=== PATIENT | female | born 1995 | race Caucasian/White ===

== ENCOUNTER 2018-07-15 23:28 | Emergency (ER) | payer OTHER ==
[2018-07-15 23:33] VITALS: BP 130/77; PULSE 68; RESP 16; TEMP 98.4
[2018-07-16] MEDS ORDERED: AMOXIC-POT CLAV 875MG STARTER 2 EACH TABLET PO STA (01:15)
[2018-07-16] MEDS ORDERED: DIPH,PERTUS(ACELL)TETVAC-LF 0.5 ML VIAL IM ONE (01:15)
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
== END 2018-07-16 01:45 | disposition home or self-care (01) ==
LOC: EC 23:28 → SUPCPDRO 23:28 → EC 07-16 01:45
DX: S60.413A Abrasion of left middle finger, initial encounter (principal); Z23 Encounter for immunization; W50.3XXA Accidental bite by another person, initial encounter; Y93.89 Activity, other specified; Y92.69 Other specified industrial and construction area as the place of occurrence of the external cause; Y99.0 Civilian activity done for income or pay
CPT/HCPCS: 90471; 90715; 99283

== ENCOUNTER 2018-11-23 13:57 | Outpatient (CLI) | payer SELFPAY ==
[2018-11-23 14:54] VITALS: BP 127/79; PULSE 70; RESP 18; TEMP 98
--- NOTE | 2019-01-02 07:34 | P.MSEPDOC ---
Presenting Problems - Arrival Data Date of Arrival on Unit: 11/23/18 Time of Arrival on Unit: 13:57 Mode of Transport: Ambulatory - Complaint OB-Reason for Admission/Chief Complaint: Rule Out PROM Medical History - Information : 1 Para: 0 Term: 0 : 0 Abortions: Spontaneous or Elective: 0 Number of Living Children: 0 - Gestational Age Gestational Age by NORMAN (wks/days): 22 Weeks and 3 Days Review of Systems - Review of Systems Constitutional: No problems Breast: No problems ENT: No problems Cardiovascular: No problems Respiratory: No problems Gastrointestinal: No problems Genitourinary: No problems Musculoskeletal: No problems Neurological: No problems Skin: No problems Vital Signs - Temperature Temperature: 98.0 F Temperature Source: Temporal Artery Scan - Pulse Right Brachial Pulse Rate: 70 Pulse Assessment Method: Automatic Cuff - Respirations Respiratory Rate: 18 Oxygen Delivery Method: Room Air - Blood Pressure Right Arm Blood Pressure: 127/79 Blood Pressure Mean: 95 Blood Pressure Source: Automatic Cuff Medical Screen Scoring (Pre) - Cervical Exam Dilation: Exam Deferred Effacement: Exam Deferred Membranes: Intact - Uterine Contractions Frequency: N/A Duration: N/A Intensity: N/A - Maternal Vital Signs Maternal Temperature: N/A Maternal Blood Pressure: N/A Signs of Preeclampsia: N/A Maternal Respirations: N/A - Maternal Trauma Maternal Trauma: N/A - Assessment - Baby A Heart Rate - NICHD Category: Category I (Normal) = 0 Position: N/A Station: N/A - Total Score - Baby A Total Score - Baby A: 0 - Level of Risk - Baby A Level of Risk - Baby A: Low (0-5) - Pain Assessment Pain Scale Used: Numeric (1 - 10) Pain Intensity: 0 Physician Notification (Pre) - Physician Notified Physician Notified Date: 11/23/18 Physician Notified Time: 14:30 Physician/Practitioner Notifed:: Dr. Gary Spoke With: Dr. Gary New Order Received: Yes - Notification Comment Comment: discharge pt home, have her follow up in office next week with Dr. Jimenez Disposition - Disposition OB Disposition: Triage, Discharge to home Discharge Date: 11/23/18 Discharge Time: 14:35 I agree with the RN Medical Screening Exam: Yes Risk & Benefit of care provided described in d/c instruction: Yes Diagnosis: O47.01
== END 2018-11-23 14:35 | disposition home or self-care (01) ==
LOC: FBPOP 13:57
PROVIDERS: ATTEND Obstetrics & Gynecology
DX: O47.02 False labor before 37 completed weeks of gestation, second trimester (principal); Z3A.22 22 weeks gestation of pregnancy
CPT/HCPCS: 84112; 99213

== ENCOUNTER 2019-04-02 05:50 | Inpatient (IN) | payer MEDICAID ==
[2019-04-02] MEDS ORDERED: LIDOCAINE 0.5% (PF) 5 MG/ML (50 ML SDV) SQ PRN (06:10)
[2019-04-02] MEDS ORDERED: METHYLERGONOVINE 0.2 MG/ML 1 ML AMP IM PRN (06:10)
[2019-04-02] MEDS ORDERED: OXYTOCIN 10 UNIT/ML 1 ML VIAL IM PRN (06:10)
[2019-04-02] MEDS ORDERED: CARBOPROST TROMETHAMINE 250 MCG/ML 1 ML AMP IM PRN (06:10)
[2019-04-02] MEDS ORDERED: TERBUTALINE 1 MG/ML VIAL SQ PRN (06:10)
[2019-04-02] MEDS ORDERED: OXYTOCIN 30 UNITS/500 ML NS 30 UNIT in SALINE 1 500ML.BAG IV SCH (06:15)
[2019-04-02 06:17] VITALS: BMI 30.1
[2019-04-02] MEDS: LACTATED RINGERS 1,000 ML IV SCH ×3 (06:21→11:04)
[2019-04-02 06:44] LABS: Basophils # (A) 0.1 k/uL (0-0.2); Basophils % (A) 1 %; Eosinophils # (A) 0.2 k/uL (0-0.7); Eosinophils % (A) 2 %; HCT 40.8 % (34.0-46.0); HGB 14.2 gm/dL (11.4-16.0); Lymphocytes % (A) 21 %; MCH 31.4 pg (25.0-35.0); MCHC 34.8 g/dL (31.0-37.0); MCV 90.2 fL (80.0-100.0); Mean Platelet Volume 7.7; Monocytes # (A) 0.6 k/uL (0-1.0); Monocytes % (A) 6 %; Neutrophils # (A) 6.5 k/uL (1.3-7.7); Neutrophils % (A) 68 %; Platelet Count 256 k/uL (150-450); RBC 4.52 m/uL (3.80-5.40); RDW 14.4 % (11.5-15.5); WBC 9.6 k/uL (3.8-10.6)
--- NOTE | 2019-04-02 06:57 | P.HPOB ---
History of Present Illness H&P Date: 04/02/19 Chief Complaint: Here for induction of labor for postdates . This is a 23-year-old white female 1 para 0 EDC 03/26/2019 at 41 weeks gestation. Patient presents for induction for postdates . Fetus is been active throughout the . She is having irregular very mild uterine contractions at this time. She denies fluid leakage or vaginal bleeding. Past medical history is significant for anxiety. Past surgical history adenoidectomy and tonsillectomy, eustachian tubes, benign cyst removed from the neck. Current medications vitamins. ALLERGIES none known. Family history significant for heart disease, hypertension, lymphoma, squamous cell carcinoma. 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 She has never been a smoker. She denies alcohol or drug use. Obstetric history is significant for blood type A+, rubella status immune. Hepatitis B surface antigen, HIV testing, urine culture, gonorrhea and chlamydia cultures, group B strep cultures all negative. One-hour Glucola less than 140. On exam patient is 4 foot 11 inches, 149 pounds, initial blood pressure 137/90. Vital signs are otherwise stable. The general physical exam is within normal limits. The chest is clear in all kn[place]. Extremities reveal no edema. heart rate is consistent with reactive NST. Cervix is 3 cm dilated, 80% effaced, -2 station, vertex presentation. Artificial amniorrhexis reveals clear fluid. Impression: 41 week intrauterine , here for induction of labor. All signs reassuring. Plan: Oxytocin per hospital protocol. Posterior maternal and surveillance. Analgesic options reviewed with the patient. Anticipate normal spontaneous vaginal delivery. Review of Systems Constitutional: Reports as per HPI Past Medical History Past Medical History: No Reported History History of Any Multi-Drug Resistant Organisms: None Reported Past Surgical History: No Surgical Hx Reported Past Anesthesia/Blood Transfusion Reactions: No Reported Reaction Past Psychological History: No Psychological Hx Reported, Anxiety Smoking Status: Never smoker Past Alcohol Use History: None Reported - Past Family History Mother Family Medical History: Hypertension Medications and Allergies Home Medications Medication Instructions Recorded Confirmed Type Pnv No.95/Ferrous Fum/Folic AC 1 each PO DAILY 11/23/18 04/02/19 History [ Multivitamin Tablet] Allergies Allergy/AdvReac Type Severity Reaction Status Date / Time No Known Allergies Allergy Verified 04/02/19 06:09 Exam Vital Signs Temp Pulse Resp BP Pulse Ox 04/02/19 06:11 97.5 F L 70 15 137/90 99 Intake and Output 04/01/19 04/01/19 04/02/19 14:59 22:59 06:59 Other: Weight 67.585 kg See dictation please under HPI Results Result Diagrams: 04/02/19 06:15 Assessment and Plan Assessment: 41 week intrauterine , here for induction of labor. All signs reass uring. Plan: Analgesic options reviewed with the patient. Oxytocin per hospital protocol. Close maternal and surveillance. Anticipate normal spontaneous vaginal delivery. Time with Patient: Less than 30
[2019-04-02] MEDS ORDERED: fentaNYL (PF) 50 MCG/ML 5 ML AMP ONE (10:18)
[2019-04-02] MEDS ORDERED: ROPIVACAINE 5MG/ML 20ML VIAL ONE (10:18)
[2019-04-02] MEDS ORDERED: SODIUM CHLORIDE 0.9% 100 ML BAG ONE (10:18)
[2019-04-02] MEDS ORDERED: diphenhydrAMINE 50 MG CAP PO PRN (15:49)
[2019-04-02] MEDS ORDERED: SIMETHICONE 80 MG CHEWABLE PO PRN (15:49)
[2019-04-02] MEDS ORDERED: diphenhydrAMINE ELIXIR 25 MG/10 ML CUP PO PRN (15:49)
[2019-04-02] MEDS ORDERED: HYDROCORTISONE 2.5% RECTAL CREAM 30 GM TUBE RECTAL PRN (15:49)
[2019-04-02] MEDS ORDERED: BENZOCAINE/MENTHOL SPRAY 1 GM/SPRAY AEROSOL TOPICAL PRN (15:49)
[2019-04-02] MEDS ORDERED: ZOLPIDEM 5 MG TAB PO PRN (15:49)
[2019-04-02] MEDS ORDERED: LANOLIN CREAM 5 GM TUBE TOPICAL PRN (15:49)
[2019-04-02] MEDS ORDERED: diphenhydrAMINE 25 MG CAP PO PRN (15:49)
[2019-04-02] MEDS ORDERED: WITCH HAZEL 1 EACH MED..PAD TOPICAL PRN (15:49)
[2019-04-02] MEDS ORDERED: HYDROcodone/APAP 5-325MG 1 EACH TAB PO PRN (15:49)
[2019-04-02] MEDS ORDERED: diphenhydrAMINE 50 MG/ML 1 ML VIAL IVP PRN ×2 (15:49)
--- NOTE | 2019-04-02 15:49 | P.PROBDLV ---
Vaginal Delivery Note - . Vaginal Delivery Note: This is a 23-year-old white female 1 para 0 EDC 03/26/2019 at 41 weeks gestation. Patient presented today for induction for postdates with reasonably favorable cervix. Fetus is been active throughout the . Group B strep cultures negative. Blood type A+. Rubella status immune. Please see my dictated history and physical for details. Artificial amniorrhexis revealed clear fluid. Oxytocin was started and titrated press per protocol. She became uncomfortable and requested an epidural, this was placed without difficulty. She progressed to the first stage of labor and became completely dilated, at which time the second stage of labor commenced. After approximately 1 hour, the crowned in the occiput anterior position. The perineal body was prepped and draped in usual sterile fashion. A small midline episiotomy was performed for a large amount of It and the large head. Infant's head delivered occiput anterior and she restituted accordingly. There was no nuchal cord noted. The right or anterior shoulder was gently delivered from underneath the pubic symphysis at which time the oropharynx, nasopharynx, and external nares were bulb suctioned on the perineal body. Patient was officially delivered of a liveborn female at [id number] hours. Umbilical cord was doubly clamped and ligated, she was handed to waiting nurses for evaluation where scores of 9 and 9 at one and 5 minutes respectively were given. The placenta delivered spontaneously, it was inspected and noted to be intact with trivascular cord several minutes after. The uterus is then massaged. Inspection of the cervix, vagina, perineum, periurethral, and perirectal areas revealed no extension. The small second-degree midline episiotomy was repaired in the usual fashion using 3-0 Vicryl suture and 1% lidocaine. Excellent reapproximation was noted. Infant weight 8 lbs. 1 oz. or 3655 g. Total estimated blood loss 300 mL's. Patient her and family members were allowed to begin the bonding. With the immediately following delivery.
[2019-04-02] MEDS ORDERED: OXYTOCIN 20 UNITS/1000 ML NS 1,000 ML IV SCH (16:00)
[2019-04-02] MEDS: IBUPROFEN 600 MG TAB PO PRN (16:23)
[2019-04-02] MEDS: SENNOSIDES-DOCUSATE SODIUM 1 EACH TAB PO SCH (19:30)
[2019-04-02] MEDS: ACETAMINOPHEN TAB 325 MG TAB PO PRN (20:32)
[2019-04-03] MEDS: IBUPROFEN 600 MG TAB PO PRN ×3 (05:56→23:40)
--- NOTE | 2019-04-03 07:39 | P.DS ---
Providers Date of admission: 04/02/19 05:50 Expected date of discharge: 04/03/19 Attending physician: Parul Jimenez Primary care physician: Stated None Hospital Course: This is a 23-year-old white female 1 para 0 EDC 03/26/2019 at 41 weeks gestation. Patient presented for induction for postdates with favorable cervix. is remarkable for blood type A positive, rubella status immune, group strep cultures negative. Please see dictated history and physical for details. Artificial amniorrhexis revealed clear fluid. Oxytocin was started and titrated per hospital protocol. Epidural was placed per her request. In the second stage of labor she was noted to have a very large head, stretching of the perineal body was difficult. Therefore a small midline episiotomy was performed with the aid of lidocaine. Patient went on to deliver a liveborn female infant with scores of 9 and 9 at one and 5 minutes respectively. weight 8 lbs. 1 oz. or 3655 g. The repair the episiotomy went well. Estimated blood loss 300 mL's. Please see dictated delivery note for details. This morning the patient and her infant are both doing well. Patient is voiding, ambulating, passing flatus, and breast-feeding without difficulty. Breasts are not engorged. Prescription for breast pump is provided. infant is doing well. Patient is judged to be in very good condition for discharge home. She will follow-up with me in the office in 6 weeks. I have reminded her no intercourse, tampons or douching. She will use [id number] Advil or Aleve, or Motrin as needed for pain. She will continue taking her vitamin daily. I've asked her to call me with any fevers shakes or chills, foul smelling or copious lochia, with the passage of large blood clots, with any pain not alleviated by [id number] products, or indeed with any concerns. 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 Patient Condition at Discharge: Good Plan - Discharge Summary Discharge Rx Participant: No New Discharge Prescriptions: No Action Pnv No.95/Ferrous Fum/Folic AC [ Multivitamin Tablet] 1 each PO DAILY Discharge Medication List Pnv No.95/Ferrous Fum/Folic AC [ Multivitamin Tablet] 1 each PO DAILY 11/23/18 [History] Follow up Appointment(s)/Referral(s): Parul Jimenez MD [STAFF PHYSICIAN] - 6 Weeks Discharge Disposition: HOME SELF-CARE
[2019-04-03] MEDS: SENNOSIDES-DOCUSATE SODIUM 1 EACH TAB PO SCH (08:09)
[2019-04-04] MEDS: SENNOSIDES-DOCUSATE SODIUM 1 EACH TAB PO SCH ×2 (01:03→09:39)
[2019-04-04] MEDS: IBUPROFEN 600 MG TAB PO PRN ×2 (05:34→16:18)
[2019-04-04 09:38] VITALS: RESP 16
[2019-04-04] MEDS: ACETAMINOPHEN TAB 325 MG TAB PO PRN (09:41)
[2019-04-04 16:15] VITALS: BP 112/65; PULSE 64; TEMP 98.4
== END 2019-04-04 19:16 | disposition home or self-care (01) | DRG 807 ==
LOC: 4FBP 05:50
PROVIDERS: ADMIT Obstetrics & Gynecology; ATTEND Obstetrics & Gynecology
PROC: 10E0XZZ Delivery of Products of Conception, External Approach (ICD-10-PCS; principal; 2019-04-02)
PROC: 10907ZC Drainage of Amniotic Fluid, Therapeutic from Products of Conception, Via Natural or Artificial Opening (ICD-10-PCS; 2019-04-02)
PROC: 3E033VJ Introduction of Other Hormone into Peripheral Vein, Percutaneous Approach (ICD-10-PCS; 2019-04-02)
PROC: 0W8NXZZ Division of Female Perineum, External Approach (ICD-10-PCS; 2019-04-02)
PROC: 00HU33Z Insertion of Infusion Device into Spinal Canal, Percutaneous Approach (ICD-10-PCS; 2019-04-02)
PROC: 3E0R3BZ Introduction of Anesthetic Agent into Spinal Canal, Percutaneous Approach (ICD-10-PCS; 2019-04-02)
DX: O48.0 Post-term pregnancy (principal); Z37.0 Single live birth; Z3A.41 41 weeks gestation of pregnancy; Z86.59 Personal history of other mental and behavioral disorders; Z80.7 Family history of other malignant neoplasms of lymphoid, hematopoietic and related tissues; Z82.49 Family history of ischemic heart disease and other diseases of the circulatory system; Z80.9 Family history of malignant neoplasm, unspecified
CPT/HCPCS: 85025; 86850; 86900; 86901

== ENCOUNTER 2021-01-17 09:14 | Observation (INO) | payer BC, MEDICAID ==
--- NOTE | 2021-01-17 09:44 | ED ---
Female Urogenital HPI - General Chief complaint: Urogenital Stated complaint: 13wks Preg/Unable to Urinate Time Seen by Provider: 01/17/21 09:33 Source: patient Mode of arrival: ambulatory Limitations: no limitations - History of Present Illness Initial comments: 25-year-old female that is 13 weeks resents with difficulty urinating for the last day. Patient states she's having a hard time being able to urinate and only getting small amount of urine out. Patient states she does feel some lower abdominal pressure with urination. No back pain. Patient states she had a normal bowel movement today and it did seem to help. She did not have any vaginal bleeding. Patient has not had any abdominal surgical history. No nausea no vomiting no fevers. Patient saw her OB earlier this week Dr. Jimenez and had a normal visit. Patient did have an ultrasound that was normal at 8 weeks gestation. Patient is scheduled for another ultrasound at 20 weeks. Patient did have some discomfort and pressure with intercourse yesterday. MD Complaint: other (difficulty urinating ) -: days(s) (1) Location: suprapubic Radiation: non-radiating Quality: cramping, dull Consistency: constant Improves with: other (BM) Worsens with: intercourse, movement Associated Symptoms: denies other symptoms - Related Data Sexually active: Yes : 2 Para: 1 Home Medications Medication Instructions Recorded Confirmed Pnv No.95/Ferrous Fum/Folic AC 1 each PO DAILY 11/23/18 04/02/19 [ Multivitamin Tablet] Allergies Allergy/AdvReac Type Severity Reaction Status Date / Time No Known Allergies Allergy Verified 01/17/21 13:05 Review of Systems ROS Statement: Those systems with pertinent positive or pertinent negative responses have been documented in the HPI. ROS Other: All systems not noted in ROS Statement are negative. Constitutional: Denies: fever, chills Gastrointestinal: Reports: abdominal pain Genitourinary: Reports: dyspareunia, other (decreased urine output) Musculoskeletal: Denies: back pain Skin: Denies: rash Past Medical History Past Medical History: No Reported History History of Any Multi-Drug Resistant Organisms: None Reported Past Surgical History: No Surgical Hx Reported Past Anesthesia/Blood Transfusion Reactions: No Reported Reaction Past Psychological History: Anxiety Smoking Status: Never smoker Past Alcohol Use History: None Reported Past Drug Use History: None Reported - Past Family History Mother Family Medical History: Hypertension General Exam Limitations: no limitations General appearance: alert, in no apparent distress Respiratory exam: Present: normal lung sounds bilaterally. Absent: respiratory distress, wheezes, rales, rhonchi, stridor Cardiovascular Exam: Present: regular rate, normal rhythm, normal heart sounds. Absent: systolic murmur, diastolic murmur, rubs, gallop, clicks GI/Abdominal exam: Present: soft, tenderness (suprapubic), normal bowel sounds. Absent: distended, guarding, rebound, rigid Back exam: Present: normal inspection Neurological exam: Present: alert, oriented X3, CN II-XII intact Psychiatric exam: Present: normal affect, normal mood Skin exam: Present: warm, dry, intact, normal color. Absent: rash Course Vital Signs 01/17/21 01/17/21 09:16 12:31 Temperature 98.2 F 98.6 F Pulse Rate 65 55 L Respiratory 18 18 Rate Blood Pressure 125/76 102/55 O2 Sat by Pulse 99 98 Oximetry Medical Decision Making - Medical Decision Making 25-year-old female presents with urinary retention. Patient had straight cath here and had 900 mL obtained. Patient felt a lot more relief after having that, after reviewing urine patient does show a slight infection we'll start IV antibiotics due to pelvic OB ultrasound been normal we contacted Dr. Apodaca who is willing to admit her for observation and bladder scans throughout the evening. We will order a CBC and CMP patient understands plan and care - Lab Data Lab Results 01/17/21 Range/Units 09:47 Urine Color Light Yellow Urine Appearance Cloudy H (Clear) Urine pH 6.5 (5.0-8.0) Ur Specific [place] 1.013 (1.001-1.035) Urine Protein Negative (Negative) Urine Glucose (UA) Negative (Negative) Urine Ketones Negative (Negative) Urine Blood Negative (Negative) Urine Nitrite Negative (Negative) Urine Bilirubin Negative (Negative) Urine Urobilinogen <2.0 (<2.0) mg/dL Ur Leukocyte Esterase Small H (Negative) Urine RBC 1 (0-5) /hpf Urine WBC 3 (0-5) /hpf Ur Squamous Epith Cells 17 H (0-4) /hpf Amorphous Sediment Occasional H (None) /hpf Urine Bacteria Moderate H (None) /hpf Urine Mucus Occasional H (None) /hpf Disposition Clinical Impression: Urinary tract infection, Urinary retention with incomplete bladder emptying, Disposition: ADMITTED IP TO THIS [facility] Instructions (If sedation given, give patient instructions): Urinary Tract Infection in Women (ED) Is patient prescribed a controlled substance at d/c from ED?: No Referrals: Christina Naik MD [Primary Care Provider] - 1-2 days Time of Disposition: 13:44
[2021-01-17 10:09] LABS: Amorphous Sediment,Urine Occasional /hpf; Appearance,Urine Cloudy (Clear); Bacteria,Urine Moderate /hpf; Bilirubin,Urine Negative (Negative); Blood,Urine Negative (Negative); Color,Urine Light Yellow; Glucose,Urine (UA) Negative (Negative); Ketones,Urine Negative (Negative); Leukocyte Esterase,Urine Small (Negative); Mucus,Urine Occasional /hpf; Nitrite,Urine Negative (Negative); PH, Urine 6.5 (5.0-8.0); Protein,Urine Negative (Negative); RBC,Urine 1 /hpf (0-5); Specific Gravity,Urine 1.013 (1.001-1.035); Squamous Epithelial Cell,Urine 17 /hpf (0-4); Urobilinogen,Urine <2.0 mg/dL (<2.0); WBC,Urine 3 /hpf (0-5)
--- NOTE | 2021-01-17 11:08 | US ---
EXAMINATION TYPE: Transabdominal DATE OF EXAM: 01/17/2021 10:55 AM COMPARISON: NONE CLINICAL HISTORY: difficulty urinating, 13 weeks . no pain, no cramping. Unable to urinate p er patient. EXAM PERFORMED: Transabdominal (TA) EXAM MEASUREMENTS: GESTATIONAL AGE / DATING Physician Established: (13 weeks/5 days) EDC: 07/20/2021 Dates by LMP: LMP unknown Dates by First Scan: (13 weeks/5 days) EDC: 07/20/2021 Dates by Current Scan for: (13 weeks/6 days) EDC: 07/19/2021 MATERNAL ANATOMY Uterus: 13.0 x 10.x x 9.9 cm Right Ovary: 4.1 x 2.4 x 2.3 cm Left Ovary: 3.4 x 2.1 x 1.2 cm Post CDS / Adnexa: no free fluid Presence of free fluid: no Presence of corpus luteal cyst: right ovarian lesion = 2.0 x 1.9 x 1.8 cm Presence of subchorionic bleed: no GESTATION / SURVEY CRL: 7.8 cm (13 weeks/6 days) MSD: seen, not measured Yolk Sac (normal less than 6mm): not visualized Heart Rate: 157 bpm Rhythm: Normal IUP: Viable IUP Date of LMP: unknown, Beta HcG (if available): Not available at this time Single live IUP measuring 13 weeks 6 days. Linen Attendant tried to have patient urinate, patient tried and was unable to void. IMPRESSION: Single viable intrauterine with an estimated gestational age 13 weeks 6 days. No abnormalit ies of the uterus or adnexa.
[2021-01-17 13:37] LABS: Basophils % (A) 0 %; Eosinophils # (A) 0.1 k/uL (0-0.7); Eosinophils % (A) 1 %; HCT 34.3 % (34.0-46.0); Lymphocytes # (A) 1.7 k/uL (1.0-4.8); Lymphocytes % (A) 21 %; MCH 31.1 pg (25.0-35.0); MCHC 34.9 g/dL (31.0-37.0); MCV 88.9 fL (80.0-100.0); Mean Platelet Volume 7.2; Monocytes # (A) 0.4 k/uL (0-1.0); Monocytes % (A) 5 %; Neutrophils # (A) 5.6 k/uL (1.3-7.7); Neutrophils % (A) 71 %; Platelet Count 268 k/uL (150-450); RBC 3.86 m/uL (3.80-5.40); RDW 12.8 % (11.5-15.5); WBC 7.9 k/uL (3.8-10.6)
[2021-01-17 13:46] LABS: ALT 8 U/L (4-34); AST 18 U/L (14-36); African American GFR (CKD) >90 (>60 ml/min/1.73 sqM); Albumin 4.2 g/dL (3.5-5.0); Alkaline Phosphatase 36 U/L (38-126); Anion Gap 9 mmol/L; Blood Urea Nitrogen 8 mg/dL (7-17); Calcium 9.1 mg/dL (8.4-10.2); Carbon Dioxide 24 mmol/L (22-30); Chloride 104 mmol/L (98-107); Glucose 79 mg/dL (74-99); Non-African American GFR(CKD) >90 (>60 ml/min/1.73 sqM); Potassium 3.9 mmol/L (3.5-5.1); Sodium 137 mmol/L (137-145); Total Bilirubin 0.2 mg/dL (0.2-1.3); Total Protein 6.6 g/dL (6.3-8.2)
[2021-01-17] MEDS: ACETAMINOPHEN TAB 500 MG TAB PO PRN ×2 (17:31→23:19)
--- NOTE | 2021-01-17 19:09 | P.HPOB ---
History of Present Illness H&P Date: 01/17/21 Chief Complaint: IUP @ 13 weeks, urinary retention This is a 25yo at 13 weeks, EDC of 07/20/2020. Patient states yesterday she was struggling with urination and had to bear down to void. She got up around 1:30 early this morning and was unable to urinate, she got up again at 7:30 and only had a small amount of urine past. Patient then presented to the emergency department. Patient initially was being worked up for a bladder infection, minimal signs of UTI were appreciated on urine dip, ultrasound was obtained which was normal obstetric late. Patient underwent straight cath for 900 mL. Patient states she felt better after straight cath. Patient was obse rved on OB to evaluate Candelaria os, patient had noted postvoid residual of 300 mL. Patient had Do catheter placed for 300 mL after void. Patient had 2 small voids prior to Do catheter being placed. Patient denies fevers or chills. She states she had an uncomplicated first with a spontaneous vaginal delivery. Patient denies any history of frequent urinary tract infections in the past, she states this may be her first one ever. Patient denies vaginal bleeding. Review of Systems Constitutional: Denies fatigue, Denies fever Ears, nose, mouth and throat: Denies headache Cardiovascular: Reports leg edema Respiratory: Denies dyspnea Genitourinary: Reports as per HPI, Reports Past Medical History Past Medical History: No Reported History History of Any Multi-Drug Resistant Organisms: None Reported Past Surgical History: Adenoidectomy, Tonsillectomy Past Anesthesia/Blood Transfusion Reactions: No Reported Reaction Past Psychological History: Anxiety Smoking Status: Never smoker Past Alcohol Use History: None Reported Past Drug Use History: None Reported - Past Family History Mother Family Medical History: Hypertension Father Family Medical History: Cancer Medications and Allergies Home Medications Medication Instructions Recorded Confirmed Type Pnv No.95/Ferrous Fum/Folic AC 1 tab PO HS 11/23/18 01/17/21 History [ Multivitamin Tablet] Allergies Allergy/AdvReac Type Severity Reaction Status Date / Time No Known Allergies Allergy Verified 01/17/21 13:05 Exam Osteopathic Statement: *. No significant issues noted on an osteopathic structural exam other than those noted in the History and Physical/Consult. Vital Signs Temp Pulse Pulse Resp BP BP Pulse Ox 01/17/21 14:30 98.6 F 108 H 16 112/65 100 01/17/21 12:31 98.6 F 55 L 18 102/55 98 01/17/21 09:16 98.2 F 65 18 125/76 99 Intake and Output 01/17/21 01/17/21 01/17/21 06:59 14:59 22:59 Intake Total 300 Output Total 900 275 Balance -900 25 Intake: Oral 300 Output: Urine 900 275 Straight 900 Other: Voiding Method Toilet Toilet # Voids 1 Weight 48.988 kg Targeted physical exam as well as danger a well-nourished well-developed No acute distress, breathing is nonlabored, heart has regular rate and rhythm, abdomen is soft and consistent with 13 weeks of gestation, heart tones via Doppler. Results Result Diagrams: 01/17/21 13:11 01/17/21 13:11 Abnormal Lab Results - Last 24 Hours (Table) 01/17/21 01/17/21 Range/Units 09:47 13:11 Creatinine 0.38 L (0.52-1.04) mg/dL Alkaline Phosphatase 36 L (38-126) U/L Urine Appearance Cloudy H (Clear) Ur Leukocyte Esterase Small H (Negative) Ur Squamous Epith Cells 17 H (0-4) /hpf Amorphous Sediment Occasional H (None) /hpf Urine Bacteria Moderate H (None) /hpf Urine Mucus Occasional H (None) /hpf Assessment and Plan (1) 13 weeks gestation of Current Visit: Yes Status: Acute Code(s): Z3A.13 - 13 WEEKS GESTATION OF SNOMED Code(s): 03315503 (2) Urinary retention with incomplete bladder emptying Current Visit: Yes Status: Acute Code(s): R33.9 - RETENTION OF URINE, UNSPECIFIED SNOMED Code(s): 470904720 (3) Urinary tract infection Current Visit: Yes Status: Acute Code(s): N39.0 - URINARY TRACT INFECTION, SITE NOT SPECIFIED SNOMED Code(s): 96581602 Plan: 25-year-old at 13 weeks of gestation with urinary retention. Do catheter was placed to decompress the urinary bladder. We will attempt Do removal in the early a.m. with voiding trials. Normal BUN/creatinine is appreciated. IV antibiotics are begun for presumed urinary tract infection as possible cause of urinary retention.
[2021-01-17] MEDS ORDERED: PRENATAL VIT-IRON-FOLIC ACID 1 EACH CAP PO SCH (21:00)
[2021-01-17 23:52] VITALS: BP 101/63
--- NOTE | 2021-01-18 08:09 | P.DS ---
Providers Date of admission: 01/17/21 13:36 Expected date of discharge: 01/18/21 Attending physician: Shea Gary Primary care physician: Christina Naik MD Hospital Course: This is a 25-year-old white female 2 para 1001 at 13-6/7 weeks' gestation who presented to the emergency room yesterday with urinary retention. Initial Do catheter placement produced 900 mL of urine. She was admitted. Urinalysis reveals moderate bacteria and esterase, she was started on every 8 hours. is otherwise unremarkable, patient is healthy. Ultrasound reveals a normal at 13-6/7 weeks' gestation. This morning the patient has been up and voiding. Residual is approximately 200 mL on uro-scan at the bedside, however the possible inclusion of amniotic fluid in this measurement at 14 weeks gestation is considered. Patient denies any abdominal pain or pressure. Vital signs are stable and she is afebrile. The patient is judged to be in good condition for discharge home. I reminded her different voiding techniques. She will continue Keflex 500 mg twice a day for 7 days, and a prescription is provided. She will follow-up with me in the office in 1 week. She will call with any additional pressure or issues. Assessment: 13-6/7 weeks intrauterine , urinary retention, resolved. Patient Condition at Discharge: Good Plan - Discharge Summary Discharge Rx Participant: No New Discharge Prescriptions: No Action Pnv No.95/Ferrous Fum/Folic AC [ Multivitamin Tablet] 1 tab PO HS Discharge Medication List Pnv No.95/Ferrous Fum/Folic AC [ Multivitamin Tablet] 1 tab PO HS 11/23/18 [History] Follow up Appointment(s)/Referral(s): Chirstina Naik MD [Primary Care Provider] - 1-2 days Patient Instructions/Handouts: Urinary Tract Infection in Women (ED) Discharge Disposition: HOME SELF-CARE
[2021-01-18 08:29] VITALS: PULSE 70; RESP 16; TEMP 98.5
== END 2021-01-18 09:45 | disposition home or self-care (01) ==
LOC: EC 09:14 → 4FBP 13:36
PROVIDERS: ADMIT Obstetrics & Gynecology Obstetrics; ATTEND Obstetrics & Gynecology Obstetrics
DX: O23.41 Unspecified infection of urinary tract in pregnancy, first trimester (principal); R33.9 Retention of urine, unspecified; Z3A.13 13 weeks gestation of pregnancy; O99.341 Other mental disorders complicating pregnancy, first trimester; F41.9 Anxiety disorder, unspecified; O34.81 Maternal care for other abnormalities of pelvic organs, first trimester; N83.11 Corpus luteum cyst of right ovary; Z82.49 Family history of ischemic heart disease and other diseases of the circulatory system
CPT/HCPCS: 96366 ×2; 96365; 99284; 36415; 80053; 83605; 85025; 81001; 87040; 87635; 76801; G0378 ×2; J0690 ×2; J0696; S0197

== ENCOUNTER 2021-05-28 10:01 | Outpatient (CLI) | payer BC ==
[2021-05-28 11:20] VITALS: BP 113/66; PULSE 72; RESP 18; TEMP 97.8
--- NOTE | 2021-05-29 11:02 | P.MSEPDOC ---
Presenting Problems - Arrival Data Date of Arrival on Unit: 05/28/21 Time of Arrival on Unit: 10:01 Mode of Transport: Ambulatory - Complaint OB-Reason for Admission/Chief Complaint: Rule Out SROM Comment: Pt states she has been leaking clear fluid intermittently the last few days Medical History - Information : 2 Para: 1 Term: 1 : 0 Abortions: Spontaneous or Elective: 0 Number of Living Children: 1 - Gestational Age Gestational Age by NORMAN (wks/days): 32 Weeks and 3 Days Review of Systems - Review of Systems Constitutional: No problems Breast: No problems ENT: No problems Cardiovascular: No problems Respiratory: No problems Gastrointestinal: No problems Genitourinary: No problems Musculoskeletal: No problems Neurological: No problems Skin: No problems Vital Signs - Temperature Temperature: 97.8 F Temperature Source: Oral - Pulse Right Pulse Rate: 72 Pulse Assessment Method: Pulse Oximetry - Respirations Respiratory Rate: 18 Oxygen Delivery Method: Room Air O2 Sat by Pulse Oximetry: 100 - Blood Pressure Right Arm Blood Pressure: 113/66 Blood Pressure Mean: 81 Blood Pressure Source: Automatic Cuff Medical Screen Scoring - Cervical Exam Dilation (cm): 0 Membranes: Intact - Uterine Contractions Resting: Soft to palpation - Assessment - Baby A Baseline FHR: 130 Heart Rate - NICHD Category: Category I (Normal) NST: Reactive Physician Notification - Physician Notified Physician Notified Date: 05/28/21 Physician Notified Time: 10:44 Physician: Georgi Kennedy New Order Received: Yes - Notification Comment Comment: Pt presents from home with c/o leaking clear fluid intermittently the past few. days. Pt denies any bleeding or large gushes of fluid. No contra ctions. Pt denies any. complications during , and states that she has been feeling active . movement. RN informed Dr. Kennedy regarding c/o possible SROM. Amnisure negative,. reactive NST, occasional contraction (pt not feeling), abdomen soft. Pt may DC home with. follow up with Dr. Jimenez. Maternal Triage Index - Maternal Triage Index Presenting for scheduled procedure w/no complaint: No - Stat/Priority 1 Stat Priority 1: No - Urgent/Priority 2 Urgent Priority 2: Yes Provider Notified: Georgi Kennedy Provider Notified Time: 10:44 Criteria Met for Priority 2: <34 wks with c/o leaking for a few days. Disposition - Disposition OB Disposition: Discharge to home Discharge Date: 05/28/21 Discharge Time: 10:50 I agree with the RN Medical Screening Exam: Yes Physician's MSE Comment: I have neither seen nor examined the patient. Case reviewed; plan agreed upon as documented in EMR&OBIX.: Yes Diagnosis: RELATED CONDITIONS, UNSPECIFIED, THIRD TRIMESTER
== END 2021-05-28 10:50 | disposition home or self-care (01) ==
LOC: FBPOP 10:01
PROVIDERS: ATTEND Obstetrics & Gynecology
DX: Z03.79 Encounter for other suspected maternal and fetal conditions ruled out (principal)
CPT/HCPCS: 59025; 84112; 99213

== ENCOUNTER 2021-07-14 06:04 | Inpatient (IN) | payer BC ==
[2021-07-14] MEDS ORDERED: METHYLERGONOVINE 0.2 MG/ML 1 ML AMP IM PRN (06:56)
[2021-07-14] MEDS ORDERED: CARBOPROST TROMETHAMINE 250 MCG/ML 1 ML AMP IM PRN (06:56)
[2021-07-14] MEDS ORDERED: TERBUTALINE 1 MG/ML VIAL SQ PRN (06:56)
[2021-07-14] MEDS ORDERED: OXYTOCIN 10 UNIT/ML 1 ML VIAL IM PRN (06:56)
[2021-07-14] MEDS ORDERED: LIDOCAINE 0.5% (PF) 5 MG/ML (50 ML SDV) SQ PRN (06:56)
[2021-07-14] MEDS ORDERED: OXYTOCIN 30 UNITS/500 ML NS 30 UNIT in SALINE 1 500ML.BAG IV SCH (07:00)
[2021-07-14] MEDS: LACTATED RINGERS 1,000 ML IV SCH ×3 (07:00→12:06)
[2021-07-14 08:25] LABS: Basophils % (A) 0 %; Eosinophils # (A) 0.1 k/uL (0-0.7); Eosinophils % (A) 1 %; HCT 42.7 % (34.0-46.0); HGB 14.1 gm/dL (11.4-16.0); Lymphocytes # (A) 2.2 k/uL (1.0-4.8); Lymphocytes % (A) 25 %; MCH 30.8 pg (25.0-35.0); MCHC 33.1 g/dL (31.0-37.0); MCV 93.1 fL (80.0-100.0); Mean Platelet Volume 8.1; Monocytes # (A) 0.6 k/uL (0-1.0); Monocytes % (A) 7 %; Neutrophils # (A) 5.6 k/uL (1.3-7.7); Neutrophils % (A) 65 %; Platelet Count 248 k/uL (150-450); RBC 4.59 m/uL (3.80-5.40); RDW 13.9 % (11.5-15.5); WBC 8.7 k/uL (3.8-10.6)
--- NOTE | 2021-07-14 10:03 | HP ---
HISTORY AND PHYSICAL DATE OF ADMISSION: 07/14/2021 This is a 25-year-old white female 2, para 1-0-0-1, EDC 07/20/2021, at 39-1/7 weeks' gestation, who presents this morning for induction. Her prior baby was over 8 pounds with a near shoulder dystocia. Cervix is reasonably favorable. Fetus has been active throughout the . She denies fluid leakage or vaginal bleeding. FAMILY HISTORY: Significant for heart disease, squamous cell carcinoma, hypertension, lymphoma. SOCIAL HISTORY: Patient is . She has never been a smoker. She denies alcohol or drug use. 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 PAST MEDICAL HISTORY: Significant for anxiety. PAST SURGICAL HISTORY: Tonsillectomy and adenoidectomy, benign lymph node removal, tubes in the ears as a child. CURRENT MEDICATIONS: vitamins daily. ALLERGIES: NONE KNOWN. OBSTETRIC HISTORY: Patient's blood type is A positive, rubella status immune. VDRL testing, urine culture, hepatitis B surface antigen, HIV testing, gonorrhea and chlamydia cultures all negative. Group B strep culture is negative. One-hour Glucola 100. PHYSICAL EXAMINATION: Patient is 5 feet tall, 130 pounds, blood pressure 127/86. The general physical exam is within normal limits. The chest is clear in all kn[place]. Extremities reveal no edema. Cervix is 3 cm dilated, anterior, minus 2, 60% effaced, soft. Artificial amniorrhexis reveals clear fluid. Infant is vertex presentation. heart rate is consistent with reactive NST. There are no uterine contractions noted at this time. IMPRESSION: Intrauterine at 39-1/7 weeks, history of near shoulder dystocia, here for elective induction of labor, all signs reassuring. PLAN: Oxytocin per hospital protocol. Close maternal and surveillance. Analgesic options reviewed with the patient. Anticipate normal spontaneous vaginal delivery. MMODL / IJN: [id number] /
[2021-07-14] MEDS ORDERED: SODIUM CHLORIDE 0.9% 100 ML BAG ONE (11:09)
[2021-07-14] MEDS ORDERED: fentaNYL (PF) 50 MCG/ML 5 ML AMP ONE (11:09)
[2021-07-14] MEDS ORDERED: BUPIVACAINE (PF) 0.25% 30 ML VIAL ONE (11:09)
[2021-07-14] MEDS ORDERED: diphenhydrAMINE ELIXIR 25 MG/10 ML CUP PO PRN (13:24)
[2021-07-14] MEDS ORDERED: ACETAMINOPHEN TAB 325 MG TAB PO PRN (13:24)
[2021-07-14] MEDS ORDERED: HYDROCORTISONE 2.5% RECTAL CREAM 30 GM TUBE RECTAL PRN (13:24)
[2021-07-14] MEDS ORDERED: diphenhydrAMINE 25 MG CAP PO PRN (13:24)
[2021-07-14] MEDS ORDERED: LANOLIN CREAM 5 GM TUBE TOPICAL PRN (13:24)
[2021-07-14] MEDS ORDERED: diphenhydrAMINE 50 MG/ML 1 ML VIAL IVP PRN ×2 (13:24)
[2021-07-14] MEDS ORDERED: ZOLPIDEM 5 MG TAB PO PRN (13:24)
[2021-07-14] MEDS ORDERED: diphenhydrAMINE 50 MG CAP PO PRN (13:24)
[2021-07-14] MEDS ORDERED: BENZOCAINE/MENTHOL SPRAY 1 GM/SPRAY AEROSOL TOPICAL PRN (13:24)
[2021-07-14] MEDS ORDERED: SIMETHICONE 80 MG CHEWABLE PO PRN (13:24)
--- NOTE | 2021-07-14 13:24 | P.PROBDLV ---
Vaginal Delivery Note - . Vaginal Delivery Note: This is a 25-year-old white female 2 para 1001 EDC 07/20/2021 at 39 and one sevenths weeks' gestation who presented today for induction with favorable multiparous cervix. is uncomplicated, please see dictated history and physical for details. Artificial amniorrhexis revealed clear fluid. Oxytocin was started and titrated per hospital protocol. Epidural was placed per the patient's request. She became completely dilated at 1248 hrs.Perineal body was prepped and draped in usual sterile fashion. With excellent maternal expulsive efforts the head delivered occiput anterior and restituted accordingly. There was no nuchal cord noted. The right or anterior shoulder was gently delivered from underneath the pubic symphysis at which time the oropharynx, nasopharynx, and external nares were all bulb suctioned on the perineal body. Patient was officially delivered of a liveborn female at 1310 hrs. Umbilical cord was doubly clamped and ligated, she was handed to waiting nurses for evaluation where scores of 9 and 9 at one and 5 minutes respectively were given. The placenta delivered spontaneously, it was inspected and noted to be intact with trivascular cord at 1313 hrs. Perineal body was then redraped. Careful inspection of the cervix, vagina, perineum, periurethral, and perirectal areas revealed no lacerations and no defects. Fundus is firm, well below the umbilicus, symmetric and in the midline. Total estimated blood loss 200 mL's. Patient and her family are allowed to begin the bonding experience in the LDR. Infant weighs 7 lbs. 2 oz. or 3240 g.
[2021-07-14] MEDS: IBUPROFEN 600 MG TAB PO SCH ×2 (13:47→22:06)
[2021-07-15] MEDS: IBUPROFEN 600 MG TAB PO SCH ×5 (00:03→23:05)
[2021-07-15] MEDS: SENNOSIDES-DOCUSATE SODIUM 1 EACH TAB PO SCH ×3 (00:03→20:07)
--- NOTE | 2021-07-15 07:50 | P.DS ---
Providers Date of admission: 07/14/21 06:04 Expected date of discharge: 07/15/21 Attending physician: Parul Jimenez Primary care physician: Stated None Hospital Course: This is a 25-year-old white female 2 para 1001 EDC 07/20/2021 at 39 and one sevenths weeks' gestation who presented for induction with favorable multiparous cervix. is unremarkable, group B strep cultures negative, rubella status immune, blood type A+. Please see dictated history and physical for details. Artificial amniorrhexis revealed clear fluid. Oxytocin was started and titrated per hospital protocol. Epidural was placed per her request. She went on to swiftly deliver a liveborn female infant with scores of 9 and 9 at one and 5 minutes respectively. There were no perineal lacerations encountered. Estimated blood loss 200 mL's. weighed 7 lbs. 2 oz. or 3240 g. Please see dictated delivery note for details. This morning the patient is doing well. She is voiding, ambulating, passing flatus without difficulty. Vital signs are stable and she is afebrile. Fundus is firm and in the midline, symmetric and 18 week size. Extremities are negative for edema. [place] infant is doing well. Patient is judged to be in very good condition for discharge home. I have given her a prescription for a double electric breast pump. She will continue her vitamins daily. She will use [id number] ibuprofen, 600 mg every 6 hours, as needed for pain. She will call with any fevers shakes or chills, foul smelling or copious lochia, with the passage of large blood clots, with any pain not alleviated by [id number] products, or indeed with any concerns. will follow-up with manufacturing test technician as per recommendations. Assessment: Doing well day #1 Patient Condition at Discharge: Good Plan - Discharge Summary Discharge Rx Participant: No New Discharge Prescriptions: No Action Pnv No.95/Ferrous Fum/Folic AC [ Multivitamin Tablet] 1 tab PO HS Aspirin 1 tab PO DAILY Discharge Medication List Pnv No.95/Ferrous Fum/Folic AC [ Multivitamin Tablet] 1 tab PO HS 11/23/18 [History] Aspirin 1 tab PO DAILY 05/28/21 [History] Follow up Appointment(s)/Referral(s): Parul Jimenez MD [STAFF PHYSICIAN] - 6 Weeks
[2021-07-16] MEDS: IBUPROFEN 600 MG TAB PO SCH ×2 (05:39→15:11)
[2021-07-16 08:19] VITALS: BP 111/69; PULSE 62; RESP 14; TEMP 98.2
[2021-07-16] MEDS: SENNOSIDES-DOCUSATE SODIUM 1 EACH TAB PO SCH (08:20)
== END 2021-07-16 15:45 | disposition home or self-care (01) | DRG 807 ==
LOC: 4FBP 06:04
PROVIDERS: ADMIT Obstetrics & Gynecology; ATTEND Obstetrics & Gynecology
PROC: 10E0XZZ Delivery of Products of Conception, External Approach (ICD-10-PCS; principal; 2021-07-14)
PROC: 10907ZC Drainage of Amniotic Fluid, Therapeutic from Products of Conception, Via Natural or Artificial Opening (ICD-10-PCS; 2021-07-14)
PROC: 3E033VJ Introduction of Other Hormone into Peripheral Vein, Percutaneous Approach (ICD-10-PCS; 2021-07-14)
DX: O99.344 Other mental disorders complicating childbirth (principal); Z37.0 Single live birth; F41.8 Other specified anxiety disorders; Z3A.39 39 weeks gestation of pregnancy
CPT/HCPCS: 85025; 86850; 86900; 86901

== ENCOUNTER 2024-07-26 22:14 | Emergency (ER) | payer BC ==
[2024-07-26 22:23] VITALS: TEMP 97.9
--- NOTE | 2024-07-26 22:59 | ED ---
General Adult HPI - General Chief complaint: Nausea/Vomiting/Diarrhea Stated complaint: 25 weeks,vomiting,back pain Time Seen by Provider: 07/26/24 22:28 Source: patient Mode of arrival: ambulatory Limitations: no limitations - History of Present Illness Initial comments: Patient is a pleasant 28-year-old female currently 25 weeks presenting today for nausea and vomiting. Patient states that she feels like she has food poisoning as she did a few months ago. This evening began feeling nauseous, had 3 episodes of nonbloody nonbilious emesis. Currently denies abdominal pain, diarrhea, hematochezia or melena. Denies dysuria or hematuria. Also notes upper back discomfort that feels like muscle soreness and is not present at rest. Exacerbated with movements. Denies chest pain but endorses shortness of breath that she states feels like is from vomiting. Additionally, notes RLE vein prominence, though states that she has this occurred with every . She has no history of blood clots and has never had an ultrasound of this extremity. Denies recent travels, surgery or hospitalizations. No history of cancer. Denies hemoptysis or cough. No fevers or chills. She denies any vaginal bleeding and continues to feel movements. - Related Data Home Medications Medication Instructions Recorded Confirmed Pnv No.95/Ferrous Fum/Folic AC 1 tab PO HS 11/23/18 07/14/21 [ Multivitamin Tablet] Aspirin 1 tab PO DAILY 05/28/21 07/14/21 Previous Rx's Medication Instructions Recorded Cephalexin [Keflex] 500 mg PO Q6HR 10 Days #40 cap 07/27/24 Allergies Allergy/AdvReac Type Severity Reaction Status Date / Time No Known Allergies Allergy Verified 07/26/24 22:23 Review of Systems ROS Statement: Those systems with pertinent positive or pertinent negative responses have been documented in the HPI. ROS Other: All systems not noted in ROS Statement are negative. Past Medical History Past Medical History: No Reported History History of Any Multi-Drug Resistant Organisms: None Reported Past Surgical History: Adenoidectomy, Tonsillectomy Past Anesthesia/Blood Transfusion Reactions: No Reported Reaction Past Psychological History: Anxiety, Depression Smoking Status: Never smoker Past Alcohol Use History: None Reported Past Drug Use History: None Reported - Past Family History Mother Family Medical History: Hypertension Father Family Medical History: Cancer General Exam - General Exam Comments Initial Comments: PE: CONSTITUTIONAL: No apparent distress, well appearing SKIN: Warm, dry, no jaundice, hives or petechiae EYES: Pupils are equally round, extraocular movements intact without nystagmus, clear conjunctiva, non-icteric sclera HENT: Normocephalic, atraumatic, dry mucus membranes, oropharynx clear without exudates NECK: , Full range of motion, normal appearance PULMONARY: Clear to auscultation without wheezes, rhonchi, or rales, normal excursion, no accessory muscle use and no stridor CARDIOVASCULAR: Regular rate, rhythm, normal S1 and S2. No appreciated murmurs, rubs or gallops. Strong radial pulses with intact distal perfusion. No lower extremity edema, though venous prominence on the right lower extremity GASTROINTESTINAL: Soft, gravid abdomen, active bowel sounds throughout, non- tender, non-distended, no palpable masses, no rebound or guarding. No hepatosplenomegaly negative Maradiaga sign GENITOURINARY: External exam performed at patient's request with her as blind eyeletter, does show vulvar varicocites of the right labia without redness or discharge MUSCULOSKELETAL: Extremities have no gross deformity, no edema, redness, or swelling. Upper thoracic back nontender to palpation, No calf swelling or TTP NEUROLOGIC:_a/o x 3, GCS 15, normal mentation and speech. Moves all extremities x 4 without motor or sensory deficit PSYCHIATRIC:_normal mood and affect, thought process is clear and linear Limitations: no limitations Course Vital Signs 07/26/24 07/26/24 07/26/24 22:20 23:00 23:56 Temperature 97.9 F Pulse Rate 115 H 116 H 112 H Respiratory 22 16 16 Rate Blood Pressure 110/69 101/74 101/67 O2 Sat by Pulse 98 98 99 Oximetry 07/27/24 07/27/24 07/27/24 00:39 02:19 04:52 Temperature Pulse Rate 117 H 109 H 114 H Respiratory 16 16 Rate Blood Pressure 99/56 103/69 O2 Sat by Pulse 99 100 100 Oximetry EKG Findings - EKG Comments: EKG Findings:: Sinus tachycardia, rate 105 beats minute MN interval 22 ms QT/QTc 337/398 ms normal axis, no ST elevations or depressions, no arrhythmia Medical Decision Making - Medical Decision Making Was pt. sent in by a medical professional or institution (ME[facility] Bautista, [employer], urgent care, hospital, or long-term...) When possible be specific @ -No Did you speak to anyone other than the patient for history (EMS, parent, family, police, friend...)? What history was obtained from this source @ -No Did you review nursing and triage notes (agree or disagree)? Why? @ -I reviewed nursing and triage notes- of note RN notes pt endorsed "pain radiating to her back", when discussed with pt, pain is mild and across upper back, positional, nonradiating Were old charts reviewed (outside hosp., previous admission, EMS record, old EKG, old radiological studies, urgent care reports/EKG's, long-term records)? Report findings Medical records reviewed Differential Diagnosis (chest pain, altered mental status, abdominal pain women, abdominal pain men, vaginal bleeding, weakness, fever, dyspnea, syncope, headache, dizziness, GI bleed, back pain, seizure, CVA, palpatations, mental health, musculoskeletal)? Differential diagnosis remains broad however top considerations include nausea and vomiting of , hyperemesis gravidarum, gastroenteritis, cholecystitis, appendicitis, viral infection, this is not an all-inclusive list. Additionally did consider preeclampsia however patient is not hypertensive. In regards to patient's upper back discomfort, differential diagnose remains broad however top considerations include muscle spasm, muscle strain, degenerative disc disease, PE, peptic ulcer disease this is not an all-inclusive list EKG interpreted by me (3pts min.). @ -As above X-rays interpreted by me (1pt min.). @ -None done CT interpreted by me (1pt min.). I see no evidence of pulmonary embolism, no consolidations or pleural effusions U/S interpreted by me (1pt. min.). Ultrasound does not appear to show evidence of DVT What testing was considered but not performed or refused? (CT, X-rays, U/S, labs)? Why? @ -None What meds were considered but not given or refused? Why? @ -None Did you discuss the management of the patient with other professionals (professionals i.e. ME[employer] Bautista, [employer], lab, RT, psych nurse, oncology social worker, broadcast chief engineer, teacher, special police officer, wrapper caser)? Give summary @ -No Was smoking cessation discussed for >3mins.? @ -No Was critical care preformed (if so, how long)? @ -No Were there social determinants of health that impacted care today? How? (Homelessness, low income, unemployed, alcoholism, drug addiction, transportation, low edu. Level, literacy, decrease access to med. care, [facility], rehab)? @ -No Was there de-escalation of care discussed even if they declined (Discuss DNR or withdrawal of care, Hospice)? @ -No What co-morbidities impacted this encounter? (DM, HTN, Smoking, COPD, CAD, Cancer, CVA, ARF, Chemo, Hep., AIDS, mental health diagnosis, sleep apnea, morbid obesity)? @ -None Was patient admitted / discharged? Hospital course, mention meds given and route, prescriptions, significant lab abnormalities, going to OR and other pertinent info. @Discharged- Patient is a previously well 28-year-old female, 25 weeks presenting today for nausea and vomiting as well as upper back discomfort. Patient is mildly tachycardic on arrival, heart rate 115, otherwise vitals within accepta ble limits. Complete history obtained and physical exam performed. Exam notable for lungs clear to auscultation bilaterally, soft nontender abdomen negative Maradiaga's sign, negative [place]'s point, venous prominence of the right lower extremity without edema. Due to reassuring abdominal exam, at this time I do not feel further imaging of the abdomen indicated at this point. Of note patient requested evaluation of her vulva as well, due to prominent veins present there. Exam was performed with her as blind eyeletter. Vulvar varicocele noted. Patient has discussed this with her ob-hop picker in the past. As pt has not had prior imaging of her RLE will obtain US for DVT, and due to tachycardia, current , RLE swelling and upper back discomfort will obtain D Dimer. Given positional nature of upper back pain, suspect more likely mSK etiology however PE will need to be ruled out. Additionally, UA and comprehensive labs ordered, IV fluids, zofran and vitamin B6. Pt agreeable with POC. Reviewed patient's labs. LFTs are within normal limits, no elevation in bilirubin, troponin is less than 0.012, no leukocytosis. On reassessment patient endorses improvement of nausea, states there is some still slightly present. Will order Reglan and Benadryl. Patient D-dimer was elevated 1.69. Discussed with patient risks benefits obtaining CT PE study, ultimately she was agreeable to this. CT negative for PE or dissection. Does show trace pericardial effusion. BNP wnl 26, troponin <0.012. Pt is currently asymptomatic without LE edema, chest pain or dyspnea. Discussed with Dr. Gary, Ob-hop picker, appreciate recs, kindly rec's deferring this question to cardiology;. Will discuss with cardiology. heart tones obtained, show rates within acceptable limits, between [address] Gonzalez, cardiology, pt does not require further cardiac workup at this point. UA does show occasional bacteria, neg LE and nitrites. Pt asymptomatic though , will start pt on cephalexin. Updated pt to findings and plan. On reassessment patient's vitals are stable, HR 90s-100. She is able to tolerate p.o. juice and water. Patient is comfortable discharge at this time. In my medical judgment there is currently no evidence of an immediate life- threatening or surgical condition. Discharge is therefore indicated at this time. Discharge treatment instructions, follow up instructions, and appropriate emergency department return precautions were discussed with the patient and/or medical decision maker. Patient and/or medical decision maker expressed understanding of and agreed with the treatment plan, follow up instructions, and emergency department return precaution. All patient's and/or medical decision maker's questions were answered. The patient was advised that a small risk still exists that a serious condition could develop and was therefore instructed to return to the ED for any changes in symptoms, persistent symptoms, inability to obtain proper follow-up or for any further concerns. Patient received verbal and written instructions for this condition. Undiagnosed new problem with uncertain prognosis? @ -No Drug Therapy requiring intensive monitoring for toxicity (Heparin, Nitro, Insulin, Cardizem)? @ -No Were any procedures done? @ -No Diagnosis/symptom? @ Nausea and vomiting in Acute, or Chronic, or Acute on Chronic? acute Uncomplicated (without systemic symptoms) or Complicated (systemic symptoms)? @complicated Side effects of treatment? @ -No Exacerbation, Progression, or Severe Exacerbation? @ -No Poses a threat to life or bodily function? How? (Chest pain, [place], MD, pneumonia, PE, COPD, DKA, ARF, appy, cholecystitis, CVA, Diverticulitis, Homicidal, Suicidal, threat to staff... and all critical care pts) @ -No - Lab Data Result diagrams: 07/26/24 23:00 07/26/24 23:00 Lab Results 07/26/24 07/26/24 07/26/24 Range/Units 02:21 23:00 23:00 WBC 10.3 (3.8-10.6) k/uL RBC 3.98 (3.80-5.40) m/uL Hgb 12.7 (11.4-16.0) gm/dL Hct 36.2 (34.0-46.0) % MCV 90.9 (80.0-100.0) fL MCH 32.0 (25.0-35.0) pg MCHC 35.2 (31.0-37.0) g/dL RDW 14.3 (11.5-15.5) % Plt Count 222 (150-450) k/uL MPV 7.6 Neutrophils % 93 % Lymphocytes % 3 % Monocytes % 3 % Eosinophils % 0 % Basophils % 0 % Neutrophils # 9.6 H (1.3-7.7) k/uL Lymphocytes # 0.3 L (1.0-4.8) k/uL Monocytes # 0.3 (0-1.0) k/uL Eosinophils # 0.0 (0-0.7) k/uL Basophils # 0.0 (0-0.2) k/uL PT (10.0-12.5) sec INR (<1.2) APTT (22.0-30.0) sec D-Dimer (<0.60) mg/L FEU Sodium 132 L (137-145) mmol/L Potassium 4.3 (3.5-5.1) mmol/L Chloride 103 (98-107) mmol/L Carbon Dioxide 17 L (22-30) mmol/L Anion Gap 12 mmol/L BUN 13 (7-17) mg/dL Creatinine 0.49 L (0.52-1.04) mg/dL Est GFR (CKD-EPI)AfAm >90 (>60 ml/min/1.73 sqM) Est GFR (CKD-EPI)NonAf >90 (>60 ml/min/1.73 sqM) Glucose 118 H (74-99) mg/dL Calcium 8.7 (8.4-10.2) mg/dL Magnesium 1.7 (1.6-2.3) mg/dL Total Bilirubin 0.5 (0.2-1.3) mg/dL AST 20 (14-36) U/L ALT 14 (4-34) U/L Alkaline Phosphatase 52 (38-126) U/L Troponin I <0.012 (0.000-0.034) ng/mL NT-Pro-B Natriuret Pep 26 pg/mL Total Protein 6.7 (6.3-8.2) g/dL Albumin 4.1 (3.5-5.0) g/dL Amylase 81 (30-110) U/L Lipase 75 (23-300) U/L Urine Color Urine Appearance (Clear) Urine pH (5.0-8.0) Ur Specific [place] (1.001-1.035) Urine Protein (Negative) Urine Glucose (UA) (Negative) Urine Ketones (Negative) Urine Blood (Negative) Urine Nitrite (Negative) Urine Bilirubin (Negative) Urine Urobilinogen (<2.0) mg/dL Ur Leukocyte Esterase (Negative) Urine RBC (0-5) /hpf Urine WBC (0-5) /hpf Ur Squamous Epith Cells (0-4) /hpf Urine Bacteria (None) /hpf Urine Mucus (None) /hpf Influenza Type A (PCR) (Not Detectd) Influenza Type B (PCR) (Not Detectd) RSV (PCR) (Not Detectd) SARS-CoV-2 (PCR) (Not Detectd) 07/26/24 07/26/24 07/26/24 Range/Units 23:03 23:03 23:03 WBC (3.8-10.6) k/uL RBC (3.80-5.40) m/uL Hgb (11.4-16.0) gm/dL Hct (34.0-46.0) % MCV (80.0-100.0) fL MCH (25.0-35.0) pg MCHC (31.0-37.0) g/dL RDW (11.5-15.5) % Plt Count (150-450) k/uL MPV Neutrophils % % Lymphocytes % % Monocytes % % Eosinophils % % Basophils % % Neutrophils # (1.3-7.7) k/uL Lymphocytes # (1.0-4.8) k/uL Monocytes # (0-1.0) k/uL Eosinophils # (0-0.7) k/uL Basophils # (0-0.2) k/uL PT 10.4 (10.0-12.5) sec INR 0.9 (<1.2) APTT 22.8 (22.0-30.0) sec D-Dimer 1.69 H (<0.60) mg/L FEU Sodium (137-145) mmol/L Potassium (3.5-5.1) mmol/L Chloride (98-107) mmol/L Carbon Dioxide (22-30) mmol/L Anion Gap mmol/L BUN (7-17) mg/dL Creatinine (0.52-1.04) mg/dL Est GFR (CKD-EPI)AfAm (>60 ml/min/1.73 sqM) Est GFR (CKD-EPI)NonAf (>60 ml/min/1.73 sqM) Glucose (74-99) mg/dL Calcium (8.4-10.2) mg/dL Magnesium (1.6-2.3) mg/dL Total Bilirubin (0.2-1.3) mg/dL AST (14-36) U/L ALT (4-34) U/L Alkaline Phosphatase (38-126) U/L Troponin I <0.012 (0.000-0.034) ng/mL NT-Pro-B Natriuret Pep pg/mL Total Protein (6.3-8.2) g/dL Albumin (3.5-5.0) g/dL Amylase (30-110) U/L Lipase (23-300) U/L Urine Color Urine Appearance (Clear) Urine pH (5.0-8.0) Ur Specific [place] (1.001-1.035) Urine Protein (Negative) Urine Glucose (UA) (Negative) Urine Ketones (Negative) Urine Blood (Negative) Urine Nitrite (Negative) Urine Bilirubin (Negative) Urine Urobilinogen (<2.0) mg/dL Ur Leukocyte Esterase (Negative) Urine RBC (0-5) /hpf Urine WBC (0-5) /hpf Ur Squamous Epith Cells (0-4) /hpf Urine Bacteria (None) /hpf Urine Mucus (None) /hpf Influenza Type A (PCR) (Not Detectd) Influenza Type B (PCR) (Not Detectd) RSV (PCR) (Not Detectd) SARS-CoV-2 (PCR) (Not Detectd) 07/26/24 07/26/24 Range/Units 23:03 23:50 WBC (3.8-10.6) k/uL RBC (3.80-5.40) m/uL Hgb (11.4-16.0) gm/dL Hct (34.0-46.0) % MCV (80.0-100.0) fL MCH (25.0-35.0) pg MCHC (31.0-37.0) g/dL RDW (11.5-15.5) % Plt Count (150-450) k/uL MPV Neutrophils % % Lymphocytes % % Monocytes % % Eosinophils % % Basophils % % Neutrophils # (1.3-7.7) k/uL Lymphocytes # (1.0-4.8) k/uL Monocytes # (0-1.0) k/uL Eosinophils # (0-0.7) k/uL Basophils # (0-0.2) k/uL PT (10.0-12.5) sec INR (<1.2) APTT (22.0-30.0) sec D-Dimer (<0.60) mg/L FEU Sodium (137-145) mmol/L Potassium (3.5-5.1) mmol/L Chloride (98-107) mmol/L Carbon Dioxide (22-30) mmol/L Anion Gap mmol/L BUN (7-17) mg/dL Creatinine (0.52-1.04) mg/dL Est GFR (CKD-EPI)AfAm (>60 ml/min/1.73 sqM) Est GFR (CKD-EPI)NonAf (>60 ml/min/1.73 sqM) Glucose (74-99) mg/dL Calcium (8.4-10.2) mg/dL Magnesium (1.6-2.3) mg/dL Total Bilirubin (0.2-1.3) mg/dL AST (14-36) U/L ALT (4-34) U/L Alkaline Phosphatase (38-126) U/L Troponin I (0.000-0.034) ng/mL NT-Pro-B Natriuret Pep pg/mL Total Protein (6.3-8.2) g/dL Albumin (3.5-5.0) g/dL Amylase (30-110) U/L Lipase (23-300) U/L Urine Color Yellow Urine Appearance Cloudy H (Clear) Urine pH 5.5 (5.0-8.0) Ur Specific [place] 1.034 (1.001-1.035) Urine Protein 1+ H (Negative) Urine Glucose (UA) Negative (Negative) Urine Ketones 4+ H (Negative) Urine Blood Negative (Negative) Urine Nitrite Negative (Negative) Urine Bilirubin Negative (Negative) Urine Urobilinogen <2.0 (<2.0) mg/dL Ur Leukocyte Esterase Negative (Negative) Urine RBC 3 (0-5) /hpf Urine WBC 3 (0-5) /hpf Ur Squamous Epith Cells 2 (0-4) /hpf Urine Bacteria Occasional H (None) /hpf Urine Mucus Rare H (None) /hpf Influenza Type A (PCR) Not Detected (Not Detectd) Influenza Type B (PCR) Not Detected (Not Detectd) RSV (PCR) Not Detected (Not Detectd) SARS-CoV-2 (PCR) Not Detected (Not Detectd) Disposition Clinical Impression: Nausea and vomiting during , Dehydration Disposition: HOME SELF-CARE Condition: Good Instructions (If sedation given, give patient instructions): Acute Nausea and Vomiting (ED) Additional Instructions: Every disease is a spectrum and a small chance still exists that a serious con dition could develop, for this reason, please monitor yourself closely for new, changing or worsening symptoms, symptoms that persist beyond 48 hours, abdominal pain, decreased movements, chest pain, leg swelling, shortness of breath fever, inability to tolerate/keep down fluids or your medications, inability to follow up with outpatient providers as instructed and should you experience thes e symptoms or should you have any further concerns for your wellbeing please return to the ED or call 911 immediately. PLEASE call your primary care physician as soon as possible to arrange / discuss plan for followup appointment. Appointment in the next 1-3 days is strongly encouraged if possible. PLEASE let us know here before you leave if there is anything further we can do to be of any assistance. Take care and feel Better! Prescriptions: Cephalexin [Keflex] 500 mg PO Q6HR 10 Days #40 cap Is patient prescribed a controlled substance at d/c from ED?: No Referrals: Christina Naik MD [Primary Care Provider] - 1-2 days Kita Connell MD [STAFF PHYSICIAN] - 1-2 days
[2024-07-26 23:00] VITALS: RESP 16
[2024-07-26 23:16] LABS: Basophils % (A) 0 %; Eosinophils % (A) 0 %; HCT 36.2 % (34.0-46.0); HGB 12.7 gm/dL (11.4-16.0); Lymphocytes # (A) 0.3 k/uL (1.0-4.8); Lymphocytes % (A) 3 %; MCHC 35.2 g/dL (31.0-37.0); MCV 90.9 fL (80.0-100.0); Mean Platelet Volume 7.6; Monocytes # (A) 0.3 k/uL (0-1.0); Monocytes % (A) 3 %; Neutrophils # (A) 9.6 k/uL (1.3-7.7); Neutrophils % (A) 93 %; Platelet Count 222 k/uL (150-450); RBC 3.98 m/uL (3.80-5.40); RDW 14.3 % (11.5-15.5); WBC 10.3 k/uL (3.8-10.6)
[2024-07-26 23:48] LABS: ALT 14 U/L (4-34); AST 20 U/L (14-36); African American GFR (CKD) >90 (>60 ml/min/1.73 sqM); Albumin 4.1 g/dL (3.5-5.0); Alkaline Phosphatase 52 U/L (38-126); Amylase 81 U/L (30-110); Anion Gap 12 mmol/L; Blood Urea Nitrogen 13 mg/dL (7-17); Calcium 8.7 mg/dL (8.4-10.2); Carbon Dioxide 17 mmol/L (22-30); Chloride 103 mmol/L (98-107); Glucose 118 mg/dL (74-99); Lipase 75 U/L (23-300); Magnesium 1.7 mg/dL (1.6-2.3); Non-African American GFR(CKD) >90 (>60 ml/min/1.73 sqM); Potassium 4.3 mmol/L (3.5-5.1); Sodium 132 mmol/L (137-145); Total Bilirubin 0.5 mg/dL (0.2-1.3); Total Protein 6.7 g/dL (6.3-8.2)
[2024-07-26] MEDS: DEXTROSE 5%-LACTATED RINGERS 1,000 ML IV SCH (23:48)
[2024-07-26] MEDS: ONDANSETRON 4 MG/2 ML VIAL IVP STA (23:49)
[2024-07-26] MEDS: PYRIDOXINE 100 MG/ML 1 ML VIAL IVP STA (23:54)
[2024-07-26 23:55] LABS: NT-Pro-B-Type Natriuretic Pept 26 pg/mL
[2024-07-27 00:07] LABS: INR 0.9 (<1.2); Partial Thromboplastin Time 22.8 sec (22.0-30.0); Prothrombin Time 10.4 sec (10.0-12.5)
[2024-07-27 01:47] LABS: Appearance,Urine Cloudy (Clear); Bacteria,Urine Occasional /hpf; Bilirubin,Urine Negative (Negative); Blood,Urine Negative (Negative); Color,Urine Yellow; Glucose,Urine (UA) Negative (Negative); Ketones,Urine 4+ (Negative); Leukocyte Esterase,Urine Negative (Negative); Mucus,Urine Rare /hpf; Nitrite,Urine Negative (Negative); PH, Urine 5.5 (5.0-8.0); Protein,Urine 1+ (Negative); RBC,Urine 3 /hpf (0-5); Specific Gravity,Urine 1.034 (1.001-1.035); Squamous Epithelial Cell,Urine 2 /hpf (0-4); Urobilinogen,Urine <2.0 mg/dL (<2.0); WBC,Urine 3 /hpf (0-5)
[2024-07-27] MEDS: METOCLOPRAMIDE 5 MG/ML 2 ML VIAL IVP STA (02:08)
[2024-07-27] MEDS: diphenhydrAMINE 50 MG/ML 1 ML VIAL IVP STA (02:08)
--- NOTE | 2024-07-27 02:44 | US ---
EXAM: US Duplex Bilateral Lower Extremities Veins CLINICAL HISTORY: RLE swelling, shortness of breath, TECHNIQUE: Real-time duplex ultrasound scan of the bilateral lower extremity veins integrating B-mode two-dimensional vascular structure, Doppler spectral analysis, color flow Doppler imaging and compression. COMPARISON: No relevant prior studies available. FINDINGS: Right deep veins: Unremarkable. No DVT in the right common femoral, femoral, proximal deep femoral or popliteal veins. The veins demonstrate normal color flow, are normally compressible, with normal phasic flow and/or augmentation response. Right superficial veins: Unremarkable. No thrombus in the visualized right great saphenous vein. Left deep veins: Unremarkable. No DVT in the left common femoral, femoral, proximal deep femoral or popliteal veins. The veins demonstrate normal color flow, are normally compressible, with normal phasic flow and/or augmentation response. Left superficial veins: Unremarkable. No thrombus in the visualized left great saphenous vein. Soft tissues: No acute abnormality. No popliteal cyst. IMPRESSION: No evidence of deep venous thrombosis.
--- NOTE | 2024-07-27 02:59 | CT ---
EXAM: CT Angiography Chest With Intravenous Contrast CLINICAL HISTORY: Upper back discomfort, shortness of breath, TECHNIQUE: Axial computed tomographic angiography images of the chest with intravenous contrast. CTDI is 6.2 mGy and DLP is 153 mGy-cm. This CT exam was performed using one or more of the following dose reduction techniques: automated exposure control, adjustment of the mA and/or kV according to patient size, and/or use of iterative reconstruction technique. 3D and MIP reconstructed images were created and reviewed. COMPARISON: No relevant prior studies available. FINDINGS: Pulmonary arteries: No pulmonary embolism. Aorta: No thoracic aortic aneurysm or dissection. Lungs: No consolidation. Pleural space: No pleural effusion. No pneumothorax. Heart: No cardiomegaly. Small pericardial effusion. No evidence of RV dysfunction. Bones/joints: No acute fracture. Soft tissues: Unremarkable. Lymph nodes: Unremarkable. No enlarged lymph nodes. IMPRESSION: No pulmonary embolism. No aortic aneurysm or dissection. Small pericardial effusion. Otherwise negative.
[2024-07-27] MEDS: SODIUM CHLORIDE 0.9% 1,000 ML IV ONE (03:39)
[2024-07-27] MEDS: CEPHALEXIN 500MG STARTER PACK 4 CAP BTL PO STA (04:40)
[2024-07-27 04:54] VITALS: BP 103/69; PULSE 114
== END 2024-07-27 04:53 | disposition home or self-care (01) ==
LOC: EC 22:14
DX: O21.9 Vomiting of pregnancy, unspecified (principal); O99.282 Endocrine, nutritional and metabolic diseases complicating pregnancy, second trimester; E86.0 Dehydration; O99.412 Diseases of the circulatory system complicating pregnancy, second trimester; I31.39 Other pericardial effusion (noninflammatory); Z3A.25 25 weeks gestation of pregnancy
CPT/HCPCS: 36415; 93005; 85379; 83880; 80053; 82150; 83690; 83735; 84484; 85025; 85610; 85730; 81001; 87086; 87636; 93970; 71275; 99285; 96374; 96375 ×3; 96361 ×3; J1200; J3415; J2765; J2405; Q9967

== ENCOUNTER 2024-09-21 09:39 | Outpatient (CLI) | payer BC ==
[2024-09-21 10:42] VITALS: BP 109/77; PULSE 90; RESP 16; TEMP 98.2
--- NOTE | 2024-10-18 11:06 | P.MSEPDOC ---
Presenting Problems - Arrival Data Date of Arrival on Unit: 09/21/24 Time of Arrival on Unit: 09:39 Mode of Transport: Ambulatory - Complaint OB-Reason for Admission/Chief Complaint: Rule Out PROM Comment: leaking fluid gushes twice since yesterday 0800 Medical History - Information : 3 Para: 2 Term: 2 : 0 Abortions: Spontaneous or Elective: 0 Number of Living Children: 2 - Gestational Age Gestational Age by NORMAN (wks/days): 33 Weeks and 5 Days Review of Systems - Review of Systems Constitutional: No problems Breast: No problems ENT: No problems Cardiovascular: No problems Respiratory: No problems Gastrointestinal: No problems Genitourinary: No problems Musculoskeletal: No problems Neurological: No problems Skin: No problems Vital Signs - Temperature Temperature: 98.2 F Temperature Source: Temporal Artery Scan - Pulse Brachial Pulse Rate: 90 Pulse Assessment Method: Automatic Cuff - Respirations Respiratory Rate: 16 Oxygen Delivery Method: Room Air O2 Sat by Pulse Oximetry: 97 - Blood Pressure Right Arm Blood Pressure: 109/77 Blood Pressure Mean: 87 Blood Pressure Source: Automatic Cuff Medical Screen Scoring - Uterine Contractions Frequency From (mins): 0 Frequency To (mins): 0 - Assessment - Baby A Baseline FHR: 135 Heart Rate - NICHD Category: Category I (Normal) NST: Reactive Physician Notification - Physician Notified Physician Notified Date: 09/21/24 Physician Notified Time: 10:15 Physician: Georgi Kennedy New Order Received: Yes (discharge) Maternal Triage Index - Maternal Triage Index Presenting for scheduled procedure w/no complaint: No - Stat/Priority 1 Stat Priority 1: No - Urgent/Priority 2 Urgent Priority 2: Yes Provider Notified: Georgi Kennedy Provider Notified Time: 10:15 Criteria Met for Priority 2: 33.4 rule out rupture Disposition - Disposition OB Disposition: Triage, Discharge to home, Written follow up instructions reviewed Discharge Date: 09/21/24 Discharge Time: 10:17 I agree with the RN Medical Screening Exam: Yes Physician's MSE Comment: I have neither seen nor examined the patient. Case reviewed; plan agreed upon as documented in EMR&OBIX.: Yes Diagnosis: RELATED CONDITIONS, UNSPECIFIED, THIRD TRIMESTER
== END 2024-09-21 10:17 | disposition home or self-care (01) ==
LOC: FBPOP 09:39
PROVIDERS: ATTEND Obstetrics & Gynecology
DX: O26.93 Pregnancy related conditions, unspecified, third trimester (principal); Z3A.33 33 weeks gestation of pregnancy
CPT/HCPCS: 59025; 84112; 99213

== ENCOUNTER 2024-10-31 05:53 | Inpatient (IN) | payer BC ==
[2024-10-31] MEDS ORDERED: miSOPROStoL 200 MCG TAB RECTAL PRN (06:21)
[2024-10-31] MEDS ORDERED: CARBOPROST TROMETHAMINE 250 MCG/ML 1 ML AMP IM PRN (06:21)
[2024-10-31] MEDS ORDERED: TRANEXAMIC 1,000 MG/100ML-NACL 1,000 MG in EMPTY BAG 1 BAG IV PRN (06:21)
[2024-10-31] MEDS ORDERED: LIDOCAINE 0.5% (PF) 5 MG/ML (50 ML SDV) SQ PRN (06:21)
[2024-10-31] MEDS ORDERED: METHYLERGONOVINE 0.2 MG/ML 1 ML AMP IM PRN (06:21)
[2024-10-31] MEDS ORDERED: TERBUTALINE 1 MG/ML VIAL SQ PRN (06:21)
[2024-10-31] MEDS ORDERED: OXYTOCIN 10 UNIT/ML 1 ML VIAL IM PRN (06:21)
[2024-10-31] MEDS ORDERED: miSOPROStoL 200 MCG TAB PO PRN (06:21)
[2024-10-31] MEDS: LACTATED RINGERS 1,000 ML IV SCH (06:31)
[2024-10-31 06:44] LABS: Basophils # (A) 0.02 10*3/uL (0.00-0.10); Basophils % (A) 0.3 %; Eosinophils # (A) 0.07 10*3/uL (0.04-0.35); Eosinophils % (A) 0.9 %; HCT 37.7 % (37.2-46.3); HGB 12.6 g/dL (12.0-15.0); Lymphocytes # (A) 2.23 10*3/uL (0.90-5.00); MCH 28.8 pg (27.0-32.0); MCHC 33.4 g/dL (32.0-37.0); MCV 86.3 fL (80.0-97.0); Mean Platelet Volume 9.6 fL (9.5-12.2); Monocytes % (A) 9.1 %; Neutrophils # (A) 4.55 10*3/uL (1.80-7.70); Platelet Count 324 10*3/uL (140-440); RBC 4.37 10*6/uL (4.10-5.20); RDW 14.9 % (11.5-14.5)
[2024-10-31] MEDS: OXYTOCIN 30 UNITS/500 ML NS 30 UNIT in SALINE 1 500ML.BAG IV SCH (07:00)
--- NOTE | 2024-10-31 09:18 | P.HPOB ---
History of Present Illness H&P Date: 10/31/24 Chief Complaint: Elective induction of labor Ms. Cox is a 29 year old at 39 weeks and 5 days gestation with EDC of 11/02/24 by early US who presents for elective induction of labor. The has been complicated by incidental finding of maternal pleural effusion at 27 weeks. She has followed with cardiology and is now s/p a normal ECHO. The fetus is estimated to be in the 56%ile by a 32 week US. Obstetric history: 2 FTVD, largest baby 8#1, no complications work-up: blood type A positive, antibody screen negative, rubella immune, VDRL non-reactive, HIV negative, HBsAg negative, HCV Ab non-reactive, gonorrhea negative, chlamydia negative, 1 hour GTT wnl, GBS negative. s/p Tdap. Past Medical History Past Medical History: No Reported History History of Any Multi-Drug Resistant Organisms: None Reported Past Surgical History: Adenoidectomy, Tonsillectomy Past Anesthesia/Blood Transfusion Reactions: No Reported Reaction Past Psychological History: Anxiety, Depression Smoking Status: Never smoker Past Alcohol Use History: None Reported Past Drug Use History: None Reported - Past Family History Mother Family Medical History: Hypertension Father Family Medical History: Cancer Medications and Allergies Home Medications Medication Instructions Recorded Confirmed Type No Known Home Medications 09/21/24 10/31/24 History Allergies Allergy/AdvReac Type Severity Reaction Status Date / Time No Known Allergies Allergy Verified 09/21/24 10:00 Exam Intake and Output 10/30/24 10/31/24 10/31/24 22:59 06:59 14:59 Other: # Voids 1 Weight 62.596 kg 62.596 kg Focused physical exam is performed. This is a healthy-appearing in no apparent distress. Breathing is non-labored. Abdomen is gravid and non-tender. Cervical exam is 1/80/-3. AROM is attempted, no fluid return noted and difficult exam due to high station. Extremities non-tender and non- edematous. heart tones are Category I and tocometer is graphing contractions every 2-4 minutes. Results Result Diagrams: 10/31/24 06:15 Abnormal Lab Results - Last 24 Hours (Table) 10/31/24 Range/Units 06:15 Immature Gran # 0.13 H (0.00-0.04) 10*3/uL Assessment and Plan Assessment: 29 year old at 39 weeks and 5 days presenting for elective induction of labor Plan: Admit, clear liquid diet, pitocin per protocol, continuous EFM and tocometer, epidural once making cervical change, anticipate vaginal delivery.
[2024-10-31] MEDS ORDERED: fentaNYL (PF) 50 MCG/ML 5 ML AMP ONE (15:09)
[2024-10-31] MEDS ORDERED: SODIUM CHLORIDE 0.9% 250 ML BAG ONE (15:09)
[2024-10-31] MEDS ORDERED: ROPIVACAINE 5 MG/ML 30 ML VIAL ONE (15:09)
[2024-10-31] MEDS ORDERED: LANOLIN CREAM 1 GM TUBE TOPICAL PRN (17:31)
[2024-10-31] MEDS ORDERED: BENZOCAINE/MENTHOL SPRAY 1 GM/SPRAY AEROSOL TOPICAL PRN (17:31)
[2024-10-31] MEDS ORDERED: diphenhydrAMINE 50 MG CAP PO PRN (17:31)
[2024-10-31] MEDS ORDERED: diphenhydrAMINE 50 MG/ML 1 ML VIAL IVP PRN ×2 (17:31)
[2024-10-31] MEDS ORDERED: SIMETHICONE 80 MG CHEWABLE PO PRN (17:31)
[2024-10-31] MEDS ORDERED: HYDROCORTISONE 2.5% RECTAL CREAM 30 GM TUBE RECTAL PRN (17:31)
[2024-10-31] MEDS ORDERED: ZOLPIDEM 5 MG TAB PO PRN (17:31)
[2024-10-31] MEDS ORDERED: diphenhydrAMINE 25 MG CAP PO PRN (17:31)
--- NOTE | 2024-10-31 17:31 | P.PROBDLV ---
Vaginal Delivery Note - . Vaginal Delivery Note: DATE OF SERVICE: 10/31/2024 PROCEDURE: Normal Vaginal Delivery ATTENDING: Dr. Kita Connell MD ESTIMATED BLOOD LOSS: 50 mL FINDINGS: VFI, Apgars 8/9. Weight 7 pounds and 10 ounces (3465 grams) PROCEDURE: Ms. Cox is a 29 year old at 39 weeks and 5 days presenting to labor and delivery for elective induction of labor. The has been essentially uncomplicated. For further details, please review the admitting H&P. Pitocin was titrated per protocol. AROM was undertaken at 1404 revealing clear amniotic fluid. The patient received epidural anesthesia per her request. The patient was completely dilated at 1705. She pushed effectively with Category I FHTs. A viable female was delivered at 1713 over an intact perineum. The infant was placed on the maternal abdomen and bulb suctioned. The was noted to be spontaneously crying. Cord was clamped and cut after a 60-second delay. The was handed off to the pediatric team. Placenta was delivered whole with gentle cord traction at 1717. Oxytocin was started to facilitate uterine tone. Uterine fundus was found to be firm and below the umbilicus upon fundal massage. Thorough examination of the cervix, vagina, periurethral area, and perineum revealed no lacerations. The patient is stable and allowed to begin the bonding process.
[2024-10-31] MEDS: IBUPROFEN 800 MG TAB PO SCH (18:09)
[2024-10-31 18:44] VITALS: RESP 18
[2024-10-31] MEDS: SENNOSIDES-DOCUSATE SODIUM 1 EACH TAB PO SCH (20:27)
[2024-10-31] MEDS: ACETAMINOPHEN TAB 500 MG TAB PO SCH (20:27)
[2024-11-01 05:06] LABS: Basophils # (A) 0.02 10*3/uL (0.00-0.10); Basophils % (A) 0.2 %; Eosinophils # (A) 0.03 10*3/uL (0.04-0.35); Eosinophils % (A) 0.3 %; HCT 33.4 % (37.2-46.3); HGB 10.9 g/dL (12.0-15.0); Lymphocytes # (A) 1.79 10*3/uL (0.90-5.00); MCH 29.1 pg (27.0-32.0); MCHC 32.6 g/dL (32.0-37.0); MCV 89.3 fL (80.0-97.0); Mean Platelet Volume 9.6 fL (9.5-12.2); Monocytes # (A) 1.12 10*3/uL (0.20-1.00); Monocytes % (A) 11.3 %; Neutrophils # (A) 6.87 10*3/uL (1.80-7.70); Neutrophils % (A) 69.3 %; Platelet Count 277 10*3/uL (140-440); RBC 3.74 10*6/uL (4.10-5.20); RDW 15.1 % (11.5-14.5); WBC 9.92 10*3/uL (4.50-10.00)
--- NOTE | 2024-11-01 08:47 | P.DS ---
Providers Date of admission: 10/31/24 05:53 Expected date of discharge: 11/01/24 Attending physician: Kita Connell MD Primary care physician: Stated None Hospital Course: 29 year old now PPD#1 s/p . The patient is doing well this morning and had no acute events overnight. She has no complaints this morning. She reports minimal lochia, passing flatus, voiding without difficulty, ambulating, and eating/drinking without nausea or vomiting. doing well at bedside. She denies chest pain, shortness of breathing, fevers, or chills overnight. She denies pain or swelling in the legs. restrictions are reviewed with the patient including pelvic rest for 6 weeks. The patient is encouraged to call the office if she experiences any heavy bleeding, foul-smelling discharge, breast complaints, or any if she has any other concerns. She will follow up in the office in 1 week for a blood pressure check, as the patient has had a few elevated BPs overnight. She requests to restart her Zoloft, will send to [facility]. All questions are answered. Assessment: 29 year old now PPD#1 s/p Patient Condition at Discharge: Good Plan - Discharge Summary New Discharge Prescriptions: New Sertraline [Zoloft] 25 mg PO DAILY #30 tablet Discharge Medication List Sertraline [Zoloft] 25 mg PO DAILY #30 tablet 11/01/24 [Rx] Follow up Appointment(s)/Referral(s): Kita Connell MD [STAFF PHYSICIAN] - 12/10/24 1:15 pm Activity/Diet/Wound Care/Special Instructions: Instructions 1. Do not begin any exercise program for 3 weeks. 2. Do not resume sexual relations for 6 weeks or longer if uncomfortable. 3. You may take tub baths or showers at any time. 4. You may use tampons if desired after 6 weeks. 5. Keep any areas repaired with stitches clean and dry. 6. If you are not nursing, wear a good fitting, supportive bra during the day and limit fluid intake for at least 1 week to prevent breast engorgement. 7. Call the office, , within the next week to make appointment for your 6 week checkup if it has not already been made. 8. Report any of the following occurrences to the doctor promptly: a. Heavy, excessive bleeding b. Chills, fever c. Burning or frequency of urination d. Pain or redness and breasts if nursing e. Increasing pain or swelling of vulva (stitches). In addition to the above instructions, the following additional should be followed: 1. No heavy lifting or straining (exercising) until after 6 week checkup. 2. Keep abdominal incision clean and dry: You may wear a dressing if more comfortable. 3. Make office appointment for 2 weeks after delivery date. Discharge Disposition: HOME SELF-CARE
[2024-11-01] MEDS: SERTRALINE 25 MG TAB PO SCH (09:13)
[2024-11-01 14:52] VITALS: BP 114/64; PULSE 70; TEMP 97.8
== END 2024-11-01 18:02 | disposition home or self-care (01) | DRG 807 ==
LOC: 4FBP 05:53
PROVIDERS: ADMIT Obstetrics & Gynecology; ATTEND Obstetrics & Gynecology
PROC: 3E033VJ Introduction of Other Hormone into Peripheral Vein, Percutaneous Approach (ICD-10-PCS; principal; 2024-10-31)
PROC: 10907ZC Drainage of Amniotic Fluid, Therapeutic from Products of Conception, Via Natural or Artificial Opening (ICD-10-PCS; principal; 2024-10-31)
PROC: 10E0XZZ Delivery of Products of Conception, External Approach (ICD-10-PCS; principal; 2024-10-31)
PROC: 4A1HXCZ Monitoring of Products of Conception, Cardiac Rate, External Approach (ICD-10-PCS; principal; 2024-10-31)
DX: O80 Encounter for full-term uncomplicated delivery (principal); Z37.0 Single live birth; Z28.21 Immunization not carried out because of patient refusal; Z3A.39 39 weeks gestation of pregnancy
CPT/HCPCS: 85025; 86850; 86900; 86901